=== PATIENT | male | born 1935 | race Caucasian/White ===

== ENCOUNTER 2021-01-05 13:49 | Inpatient (IN) | payer BC ==
[~2021-01-05] VITALS: Ht 167.6 cm; Wt 115.7 kg
[2021-01-05] MEDS ORDERED: SODIUM CHLORIDE 0.9% 1000ML BAG (SEPSIS BOLUS) IV ONE (14:15)
[2021-01-05] MEDS ORDERED: LORAZEPAM 2MG/ML CPJ IV ONE ×2 (14:15→17:00)
[2021-01-05] MEDS ORDERED: CEFTRIAXONE 1 G PREMIX 50 ML IV ONE (14:15)
[2021-01-05] MEDS ORDERED: VANCOMYCIN 1 G PREMIX 200 ML IV ONE (14:15)
[2021-01-05 14:44] LABS: BASOPHILS % 0.9 % (0.0-2.0); EOSINOPHILS % 2.8 % (0.0-5.0); HEMATOCRIT. 30.8 % (42.0-52.0); HEMOGLOBIN. 9.8 g/dL (14.0-18.0); LYMPHOCYTES % 18.1 % (20.0-50.0); MEAN CORPUSCULAR HEMOGLOBIN 25.4 pg (28.0-32.0); MEAN CORPUSCULAR VOLUME 80.1 fL (80.0-94.0); MEAN PLATELET VOLUME 7.2 fl (7.4-10.4); MONOCYTES % 10.5 % (2.0-8.0); NEUTROPHILS % 67.7 % (40.0-76.0); PLATELET 194 x1000/uL (130-400); RED BLOOD CELL COUNT 3.85 mill/uL (4.7-6.1)
[2021-01-05 14:51] LABS: CHLORIDE 104 mEq/L (98-107)
[2021-01-05 14:52] LABS: INR 1.1; PROTHROMBIN TIME 12.2 sec (9.6-11.0)
[2021-01-05 15:32] LABS: CLARITY URINE CLEAR (CLEAR); COLOR URINE YELLOW (YELLOW); KETONES URINE NEGATIVE (NEGATIVE); LEUKOCYTE ESTERASE URINE 1+ (NEGATIVE); NITRITE URINE NEGATIVE (NEGATIVE); OCCULT BLOOD URINE NEGATIVE (NEGATIVE); PROTEIN URINE NEGATIVE (NEGATIVE); SPECIFIC GRAVITY URINE 1.016 (1.005-1.030)
[2021-01-05] MEDS ORDERED: AZITHROMYCIN 500 MG in DEXT 5% WATER 250 ML IV SCH (17:00)
[2021-01-05] MEDS ORDERED: ONDANSETRON HCL 4MG/2ML INJ IV PRN (17:30)
[2021-01-05] MEDS ORDERED: LORAZEPAM 2MG/ML CPJ IV PRN (17:30)
[2021-01-05] MEDS ORDERED: METOPROLOL TARTRATE 50MG TABLET PO NR (17:30)
[2021-01-05] MEDS ORDERED: ACETAMINOPHEN 325MG TABLET PO PRN (17:30)
[2021-01-05] MEDS: THIAMINE HCL 100MG TABLET PO SCH (18:06)
[2021-01-05] MEDS: METOPROLOL TARTRATE 50MG TABLET PO SCH (21:53)
[2021-01-05] MEDS: CHLORDIAZEPOXIDE 25MG CAPSULE PO SCH (21:53)
[2021-01-05 23:23] VITALS: BP 126/94
[2021-01-06] VITALS: BP 98/74
[2021-01-06] MEDS ORDERED: OXYC5CAP19 PO (00:18)
[2021-01-06] MEDS ORDERED: TAMS-11 PO (00:18)
[2021-01-06] MEDS ORDERED: DULO60CA64 PO (00:18)
[2021-01-06] MEDS ORDERED: GABA-532 PO (00:18)
[2021-01-06] MEDS ORDERED: FURO80TA3 MT (00:18)
[2021-01-06] MEDS ORDERED: TIZA2CAP7 MT (00:18)
[2021-01-06] MEDS ORDERED: METO-385 PO (00:18)
[2021-01-06] MEDS ORDERED: DUTA0.5C37 PO (00:18)
[2021-01-06] MEDS ORDERED: RIVA20TA MT (00:18)
[2021-01-06] MEDS ORDERED: LOSA25TA26 PO (00:18)
[2021-01-06] MEDS ORDERED: FENO48TA9 PO (00:18)
[2021-01-06] MEDS ORDERED: SERT25TA74 PO (00:18)
[2021-01-06] MEDS ORDERED: FERR325T6 PO (03:36)
[2021-01-06] MEDS ORDERED: LORA10TA7 PO (03:36)
[2021-01-06] MEDS ORDERED: FINA5TAB11 PO (03:36)
[2021-01-06] MEDS ORDERED: *PATIENT'S OWN MEDICATION STORAGE XX SCH (03:45)
[2021-01-06 04:00] VITALS: BP 128/51
[2021-01-06] MEDS: CHLORDIAZEPOXIDE 25MG CAPSULE PO SCH ×3 (06:06→21:01)
[2021-01-06 07:21] LABS: BASOPHILS % 0.7 % (0.0-2.0); EOSINOPHILS % 5.5 % (0.0-5.0); HEMATOCRIT. 32.4 % (42.0-52.0); HEMOGLOBIN. 10.1 g/dL (14.0-18.0); LYMPHOCYTES % 26.3 % (20.0-50.0); MEAN CORPUSCULAR HEMOGLOBIN 25.5 pg (28.0-32.0); MEAN CORPUSCULAR VOLUME 81.6 fL (80.0-94.0); MEAN PLATELET VOLUME 7.3 fl (7.4-10.4); MONOCYTES % 12.5 % (2.0-8.0); PLATELET 177 x1000/uL (130-400); RED BLOOD CELL COUNT 3.97 mill/uL (4.7-6.1); RED CELL DISTRIBUTION WIDTH 16.6 % (11.6-14.6)
[2021-01-06 07:27] LABS: CHLORIDE 109 mEq/L (98-107)
[2021-01-06 08:00] VITALS: BP 94/64
[2021-01-06] MEDS: METOPROLOL TARTRATE 50MG TABLET PO SCH (08:19)
[2021-01-06] MEDS: ASPIRIN 81MG TABLET PO SCH (09:28)
[2021-01-06] MEDS: THIAMINE HCL 100MG TABLET PO SCH (09:28)
[2021-01-06 12:00] VITALS: BP 123/70
[2021-01-06] MEDS ORDERED: CEFTRIAXONE 1 G PREMIX 50 ML IV SCH (14:00)
[2021-01-06] MEDS ORDERED: THIAMINE HCL 100MG TABLET PO SCH (14:30)
[2021-01-06] MEDS: TAMSULOSIN HCL 0.4MG SR CAPSULE PO SCH (14:45)
[2021-01-06] MEDS: FUROSEMIDE 40MG/4ML VIAL IVP SCH (14:45)
[2021-01-06 16:00] VITALS: BP 128/74
[2021-01-06] MEDS: RIVAROXABAN 20 MG TABLET PO SCH (16:01)
[2021-01-06] MEDS: CEFTRIAXONE 1,000 MG in DEXTROSE 5% WATER 50 ML IV SCH (16:01)
[2021-01-06] MEDS: AZITHROMYCIN 250 MG TABLET PO SCH (16:01)
[2021-01-06 20:00] VITALS: BP 161/62
[2021-01-06] MEDS: LEVETIRACETAM 500MG TABLET PO SCH (21:01)
[2021-01-06] MEDS: METOPROLOL TARTRATE 25MG TABLET PO SCH (21:02)
[2021-01-07] VITALS: BP_SYST 117; BP_SYST 147; BP_DIAS 50; BP_DIAS 51
[2021-01-07 04:00] VITALS: BP 129/68
[2021-01-07] MEDS: CHLORDIAZEPOXIDE 25MG CAPSULE PO SCH ×2 (06:37→14:33)
[2021-01-07 08:00] VITALS: BP 137/67
[2021-01-07] MEDS: METOPROLOL TARTRATE 25MG TABLET PO SCH (09:22)
[2021-01-07] MEDS: ASPIRIN 81MG TABLET PO SCH (09:22)
[2021-01-07] MEDS: TAMSULOSIN HCL 0.4MG SR CAPSULE PO SCH (09:22)
[2021-01-07] MEDS: THIAMINE HCL 100MG TABLET PO SCH (09:22)
[2021-01-07] MEDS: FUROSEMIDE 40MG/4ML VIAL IVP SCH (09:23)
[2021-01-07] MEDS: LEVETIRACETAM 500MG TABLET PO SCH (09:23)
[2021-01-07 11:10] LABS: BG BASE EXCESS 5.6 mmol/L (-2.0-2.0); BG CARBOXYHEMOGLOBIN 0.2 % (0.5-1.5); BG DEOXYHEMOGLOBIN 8.4 % (0.0-5.0); BG FRACTION INSPIRED OXYGEN 21; BG HCO3 ACT 31.9 mmol/L (22.0-26.0); BG METHEMOGLOBIN 0.1 % (0.0-1.5); BG OXYGEN SATURATION 91.6 % (92.0-98.5); BG OXYHEMOGLOBIN 91.3 % (94.0-97.0); BG PCO2 55.6 mmHg (35.0-45.0); BG PH 7.377 (7.350-7.450); BG PO2 63.2 mmHg (75.0-100.0); BG SAMPLE SITE RIGHT RADIAL; BG TOTAL HEMOGLOBIN 10.9 g/dL (12.0-18.0); BG VENT MODE ROOM AIR
[2021-01-07 12:00] VITALS: BP 107/41
[2021-01-07] MEDS: CEFTRIAXONE 1,000 MG in DEXTROSE 5% WATER 50 ML IV SCH (14:33)
[2021-01-07 15:01] LABS: BASOPHILS % 0.8 % (0.0-2.0); EOSINOPHILS % 9.8 % (0.0-5.0); HEMOGLOBIN. 9.4 g/dL (14.0-18.0); LYMPHOCYTES % 20.6 % (20.0-50.0); MEAN CORPUSCULAR VOLUME 79.8 fL (80.0-94.0); MEAN PLATELET VOLUME 7.1 fl (7.4-10.4); MONOCYTES % 9.8 % (2.0-8.0); PLATELET 157 x1000/uL (130-400); RED BLOOD CELL COUNT 3.76 mill/uL (4.7-6.1); RED CELL DISTRIBUTION WIDTH 16.8 % (11.6-14.6)
[2021-01-07 15:32] LABS: CHLORIDE 109 mEq/L (98-107)
[2021-01-07 16:00] VITALS: BP 128/79
[2021-01-07] MEDS ORDERED: THIA100T72 PO (16:19)
[2021-01-07] MEDS ORDERED: KEPP500 PO (16:19)
[2021-01-07] MEDS ORDERED: LEVO500T89 MT (16:19)
[2021-01-07 16:44] VITALS: BP 128/79
[2021-01-07] MEDS: RIVAROXABAN 20 MG TABLET PO SCH (17:00)
[2021-01-07] MEDS: AZITHROMYCIN 250 MG TABLET PO SCH (17:00)
== END 2021-01-07 19:00 | disposition home health service (06) | DRG 871 ==
LOC: ER 13:49 → 7WST 17:52 → ENRESERV 20:19 → 6WST 01-07 05:26
PROVIDERS: ADMIT Internal Medicine; ATTEND Internal Medicine
DX: A41.9 Sepsis, unspecified organism (principal); N17.0 Acute kidney failure with tubular necrosis; J18.9 Pneumonia, unspecified organism; I50.43 Acute on chronic combined systolic (congestive) and diastolic (congestive) heart failure; E44.1 Mild protein-calorie malnutrition; Z68.41 Body mass index [BMI] 40.0-44.9, adult; F10.130 Alcohol abuse with withdrawal, uncomplicated; D64.9 Anemia, unspecified; E66.9 Obesity, unspecified; I16.0 Hypertensive urgency; I48.91 Unspecified atrial fibrillation; I11.0 Hypertensive heart disease with heart failure; Z60.2 Problems related to living alone; Z66 Do not resuscitate; Z20.822 Contact with and (suspected) exposure to COVID-19; Z79.01 Long term (current) use of anticoagulants; Z79.899 Other long term (current) drug therapy; Z71.3 Dietary counseling and surveillance; Z71.41 Alcohol abuse counseling and surveillance of alcoholic
CPT/HCPCS: 36415; 36600; 71045; 80048; 80053; 80061; 81003; 82375; 82805; 83605; 83880; 84145; 84443; 84484; 85025; 93005; 97162; 99291; J0456; J0696; J1940; J2060; J3370; J7030; J7060; U0003